=== PATIENT | male | born 1950 | race Native Hawaiian/Other Pacific Islander ===

== ENCOUNTER 2019-04-04 12:08 | Emergency (ER) | payer MEDICARE, OTHER ==
[~2019-04-04] VITALS: Ht 167.6 cm; Wt 99.8 kg
[2019-04-04 12:49] VITALS: BP 139/86
[2019-04-04] MEDS ORDERED: traMADol HCL 50 MG TAB PO ONE (13:45)
== END 2019-04-04 13:57 | disposition home or self-care (01) ==
LOC: ER 12:08
DX: M50.123 Cervical disc disorder at C6-C7 level with radiculopathy (principal); E78.00 Pure hypercholesterolemia, unspecified; I10 Essential (primary) hypertension; Z86.73 Personal history of transient ischemic attack (TIA), and cerebral infarction without residual deficits
CPT/HCPCS: 72040; 73030; 93005